=== PATIENT | male | born 1960 | race Asian ===

== ENCOUNTER 2025-07-17 12:10 | Emergency (ER) | payer OTHER, SELFPAY ==
[2025-07-17 12:34] VITALS: BP 138/95; PULSE 90; RESP 18; TEMP 36.4; O2SAT 97; BMI 29.2
--- NOTE | 2025-07-17 12:39 | XR_ITS ---
CLINICAL INDICATION: cough TECHNIQUE: XR chest 2V Exam date and time: 07/17/2025, 12:48 p.m. COMPARISON: None. FINDINGS: The cardiomediastinal silhouette is within normal limits. No airspace opacities suggestive of pneumonia. No mass detected. No pleural effusion or pneumothorax. Degenerative changes of the skeletal structures. No apparent acute osseous abnormality. Surgical clips in the upper abdomen are compatible with cholecystectomy. IMPRESSION: No radiographic evidence for acute cardiopulmonary abnormality. - This report was generated utilizing speech recognition software. -
[2025-07-17 13:11] LABS: Collection Type, Urine Clean Catch
[2025-07-17 13:13] LABS: Lactate (Lactic Acid) 2.0 mMol/L (0.4-2.0)
--- NOTE | 2025-07-17 13:14 | PC.NURSE ---
CALLED PT TO GIVE MED BUT NO ANSWER WHEN CALLED IN LOBBY AND OUTSIDE.
[2025-07-17 13:24] LABS: Amphetamine/Methamp Scrn,U Negative (Negative); Barbiturate Screen,Urine Negative (Negative); Benzodiazepines Screen,Urine Negative (Negative); Benzoylecgonine Screen, Ur Positive (Negative); Bilirubin,Urine Negative (Negative); Blood,Urine 2+ (Negative); Clarity,Urine Clear (Clear/Hazy); Color,Urine Yellow (Lt Yel-Yel); Fentanyl Screen,Urine Negative (Negative); Glucose, Urine 2+ (Negative); Ketones,Urine Trace (Negative); Leukocyte Esterase,Urine Negative (Negative); Nitrite,Urine Negative (Negative); Opiate Screen,Urine Negative (Negative); PH,Urine 6.0 (5.0-7.0); Protein,Urine 1+ (Neg - Trace); RBC,Urine 45 /hpf (0-3); Specific Gravity,Urine 1.026 (1.001-1.035); Squamous Epithelial Cell,Urine 1 /hpf (0-5); THC Screen,Urine Positive (Negative); Urobilinogen,Urine 2.0 mg/dL (0.0-1.0); WBC,Urine 2 /hpf (0-5)
[2025-07-17 13:26] LABS: Basophils # (Auto) 0.0 Thou/mm3 (0.0-0.2); Basophils % (Auto) 0 % (0-2.5); Eosinophils # (Auto) 0.0 Thou/mm3 (0.0-0.5); Eosinophils % (Auto) 0 % (0-10); Hematocrit 45.5 % (41.0-53.0); Hemoglobin 15.8 g/dL (13.5-16.0); Immature Granulocytes Auto 0.07 Thou/mm3 (0.00-0.00); Lymphocytes # (Auto) 0.7 Thou/mm3 (1.0-4.8); Lymphocytes % (Auto) 5 % (10-50); Mean Corpuscular HGB Conc 34.7 g/dl (31.0-37.0); Mean Corpuscular Hemoglobin 30.0 pg (25.0-35.0); Mean Corpuscular Volume 86 fL (80-100); Monocytes # (Auto) 0.7 Thou/mm3 (0.0-0.8); Monocytes % (Auto) 5 % (0-12); Neutrophils # (Auto) 12.9 Thou/mm3 (1.8-7.7); Neutrophils % (Auto) 90 % (37-80); Nucleated Red Blood Cell # 0.00 Thou/mm3 (0.00-0.00); Nucleated Red Blood Cell % 0 /100 WBC (0); Platelet Count 209 Thou/mm3 (140-440); RDW Standard Deviation 43.1 fL (35.1-43.9); Red Blood Count 5.27 Miln/mm3 (4.50-5.90); White Blood Count 14.3 Thou/mm3 (3.8-10.6)
[2025-07-17 13:41] LABS: Alanine Aminotransferase 24 U/L (10-49); Albumin, Serum 4.9 gm/dL (3.4-4.8); Albumin/Globulin Ratio 1.9 (1.2-2.2); Alkaline Phosphatase 107 U/L (46-116); Anion Gap 9 (7-16); Aspartate Amino Transferase 26 U/L (0-34); BUN/Creatinine Ratio 8 Ratio (12-20); Bilirubin,Total 0.6 mg/dL (0.3-1.2); Blood Urea Nitrogen 9 mg/dL (9-23); Calcium 10.2 mg/dL (8.3-10.6); Calcium (Corrected) 10.2 mg/dL (8.5-10.1); Carbon Dioxide 25.4 mMol/L (20.0-31.0); Chloride 103 mMol/L (98-107); Creatinine (Component) 1.1 mg/dL (0.6-1.3); Estimated Creatinine Clearance 63.1 mL/min (>60); Globulin 2.6 gm/dL (2.3-3.5); Glucose 136 mg/dL (74-106); Osmolality,Calculated 274 (275-295); Potassium 3.4 mMol/L (3.4-5.1); Sodium 137 mMol/L (136-145); Total Protein 7.5 gm/dL (5.7-8.2); eGFR > 60 See Note
[2025-07-17 13:43] LABS: Procalcitonin 0.21 ng/ml (0.0-0.49)
[2025-07-17] MEDS: IBUPROFEN TAB 400 MG TABLET 800 MG PO (13:52)
[2025-07-17 14:11] LABS: Glucose Estimated Average 126 mg/dL (80-131); Hemoglobin A1C 6.0 % Hgb (4.8-6.0)
--- NOTE | 2025-07-17 15:10 | XR_ITS ---
Examination: CT abdomen and pelvis without contrast. Coronal 3-D reconstructions. Sagittal 2-D reconstructions. Date and time of exam: 07/17/2025, 4:34 p.m. INDICATION: Lower abdominal pain with nausea COMPARISON: None CTDI: vol (mGy): 6.96 DLP: (mGycm): 422 Technique: Axial images of the abdomen have been obtained, 3 mm slice thickness Intravenous contrast material has not been administered. Low dose protocols were performed. One or more of the following dose reduction techniques were used; automated exposure control, adjustment of the mA and/or KV according to patient size, use of iterative reconstruction technique. Findings: Lack of intravenous contrast limits evaluation of solid organs, vasculature, and lymph nodes. Lower thorax: No pleural effusions. No airspace consolidation. Thin linear scarlike density is present in the left lower lobe. Heart size is within normal limits. Liver: No hepatomegaly. Subcentimeter hypodensity in the inferior portion of the right hepatic lobe is suboptimally assessed without IV contrast but probably represents a cyst. Biliary system: No calcified gallstones or findings concerning for acute cholecystitis or biliary ductal obstruction. Spleen: Within normal limits of size. No discrete mass. Pancreas: No contour deforming mass or overt main pancreatic duct dilatation. No evidence for acute inflammation. Adrenal glands: Very mild likely benign hyperplasia of the left adrenal gland. Otherwise, discrete nodule. No hemorrhage. Kidneys: There are multiple variably sized hypodensities of the bilateral renal parenchyma that are compatible with cysts. A few hyperdense foci suspected represent hemorrhagic/proteinaceous cysts are noted at the lower pole the right kidney but suboptimally characterized without contrast. There is a very mild degree of posterior cortical calcification of the left kidney. Several cysts contain posterior mural calcification and/apparently layering calcific material. Partially exophytic lobulated mild cystic structure noted at the superior pole the left kidney. Left-sided renal calculi are present, the dominant in the interpolar region, but there is no evidence for hydronephrosis on either side. No ureteral calculi are seen. Bladder: Very limited assessment due to under distention and lack of contrast but no calculus is seen. Pelvic organs: Mildly prominent prostate gland with dense calcifications noted. Scattered tunica albuginea calcifications also noted throughout the penis. Mild bilateral hydroceles noted. Bowel/Peritoneal cavity: Limited assessment without IV and oral contrast as well as segments of underdistention. However, there is inflammatory mural thickening of the ascending colon with adjacent pericolonic fat stranding, extending mildly to the proximal transverse colon, and also appearing to involve the terminal ileum. Mild scattered diverticula are seen but there is no evidence for acute diverticulitis. No evidence for acute appendicitis or bowel obstruction. No ascites or free air. Lymph nodes/retroperitoneum: No pathologically enlarged lymph nodes or other masses. No hematoma or other abnormal collections. Vessels: Aortobiiliac atherosclerotic calcifications without aneurysm. Abdominal/Pelvic wall: Small fat-containing right inguinal hernia. Musculoskeletal: Multifocal degenerative changes with otherwise no evidence for recent fracture or aggressive lesion. IMPRESSION: Acute right-sided colitis with suspected terminal ileitis. This may be infectious or inflammatory in etiology. No evidence for bowel perforation, appendicitis or bowel obstruction. Multiple variably sized bilateral renal cysts including probable complex cysts likely be reassessed not emergently with contrast-enhanced CT or MRI of the abdomen. Small bilateral hydroceles. Chronic ancillary findings as above.
[2025-07-17 16:15] LABS: Lipase 34 U/L (12-53); Troponin I 0.020 ng/mL (0.0-0.045)
--- NOTE | 2025-07-17 17:15 | PD.EDRME ---
Rapid Medical Screening Exam RME Arrival date/time: 07/17/25 12:10 64-year-old male presents to the emerged from today patient reports he is homeless sleeps in a tent patient reports generalized abdominal pain, headache, fatigue Chief Complaint: Fever Time Seen by Provider: 07/17/25 12:39 Vital signs: Vital Signs Temperature 97.6 F 07/17/25 12:34 Pulse Rate 90 07/17/25 12:34 Respiratory Rate 18 07/17/25 12:34 Blood Pressure 138/95 H 07/17/25 12:34 Pulse Oximetry (%) 97 07/17/25 12:34 Oxygen Delivery Method Room Air 07/17/25 12:34 Vital signs reviewed by provider: Yes Exam: On exam patient well-appearing patient not appear toxic distress Clinical Impression: Lab work and imaging obtained
[2025-07-17 17:52] VITALS: BP 151/91; PULSE 90; RESP 18; TEMP 36.6; O2SAT 96
--- NOTE | 2025-07-17 18:11 | PD.EDFEVER ---
ED Fever RME/HPI General Chief Complaint: Fever Stated Complaint: FEVER, BODY ACHES, ABD PAIN Time Seen by Provider: 07/17/25 12:39 Arrival date/time: 07/17/25 12:10 RME / HPI RME / HPI Narrative: 07/17/25 12:10 64-year-old male presents to the emerged from today patient reports he is homeless sleeps in a tent patient reports generalized abdominal pain, headache, fatigue Dr. Boles?s Main ED Evaluation: 64yo male presents to the ED for complaints of generalized abdominal pain, fever, and body aches x 4 days. Patient reports associated diarrhea and sweating. Patient denies any N/V or any other associated symptoms. NKA. Patient admits to using cocaine and marijuana. Related Data Previous Rx's ?Medication ?Instructions ?Recorded levofloxacin 500 mg tablet 500 mg PO QDAY #10 tabs 07/17/25 lisinopril 40 mg tablet 40 mg PO QDAY #30 tabs 07/17/25 metronidazole 500 mg tablet 500 mg PO Q8H #30 tabs 07/17/25 Allergies Allergy/AdvReac Type Severity Reaction Status Date / Time No Known Allergies Allergy Verified 07/17/25 12:14 Review of Systems Review of Systems Systems Reviewed: All systems reviewed, normal except as documented Past Medical History Past Medical History CARDIAC: Positive Hypertension; Negative Congestive Heart Failure RESPIRATORY: Positive Asthma; Negative Chronic Obstructive Pulmonary Disease (COPD) GENITOURINARY: Negative Renal Disease ENDOCRINE: Negative Diabetes Mellitus Type 1 or Diabetes Mellitus Type 2 Social History SMOKING STATUS: Current some day smoker Physical Exam Narrative Physical exam: Generally patient is alert somewhat anxious but no obvious distress, heart regular rate and rhythm, lungs clear to auscultation equal bilaterally, abdomen soft bowel sounds present nondistended mild right lateral abdominal tenderness without rebound. Neurologic exam showed Kirk Coma Scale 15 Course Course Course Narrative: CXR is ordered for determining the etiology of fever. Quality Measures none Orders Category Date Time Status Bedside COVID-19 Antigen Test NOW Care 07/17/25 12:39 Active Bedside Influenza A&B Antigen Test NOW Care 07/17/25 12:[address] abdomen pelvis wo con Stat Exams 07/17/25 15:10 Completed XR chest 2V Stat Exams 07/17/25 12:39 Completed A1C [Glycohemoglobin w (eAG)] Stat Lab 07/17/25 13:00 Completed Blood Culture (Lab) Stat Lab 07/17/25 13:04 Received CBC Stat Lab 07/17/25 13:00 Completed Comprehensive Metabolic Panel Stat Lab 07/17/25 13:00 Completed Drug Screen,Urine Stat Lab 07/17/25 13:00 Completed Lactate (Lactic Acid) Stat Lab 07/17/25 13:00 Completed Lipase Stat Lab 07/17/25 15:27 Completed Procalcitonin Stat Lab 07/17/25 13:00 Completed Troponin I Stat Lab 07/17/25 15:27 Completed Urinalysis Stat Lab 07/17/25 13:00 Completed Urine Culture Stat Lab 07/17/25 13:00 Received Ibuprofen Tab [Motrin Tab] Med 07/17/25 13:04 Discontinued 800 mg PO X1 ONE Levofloxacin [Levaquin] Med 07/17/25 18:31 Discontinued 500 mg PO X1 ONE Lisinopril [Prinivil] Med 07/17/25 19:11 Discontinued 40 mg PO X1 ONE metroNIDAZOLE [Flagyl] Med 07/17/25 18:31 Discontinued 500 mg PO X1 ONE Vital Signs Vital signs: Vital Signs Temperature 97.6 F 07/17/25 12:34 Pulse Rate 90 07/17/25 12:34 Respiratory Rate 18 07/17/25 12:34 Blood Pressure 138/95 H 07/17/25 12:34 Pulse Oximetry (%) 97 07/17/25 12:34 Oxygen Delivery Method Room Air 07/17/25 12:34 Fever MDM Narrative MDM Narrative:: Scribe Attestation: 07/17/25 Paulette Go am scribing for and in the presence of Dr. Boles. I interpreted all labs. There is a slight leukocytosis. Urinary tox screen is positive for cocaine and marijuana. CT scan done the abdomen and pelvis showed evidence for right-sided colitis and ileitis. Patient will be started on Levaquin and Flagyl to be taken as prescribed. Patient has a history of hypertension and was hypertensive here in the emergency room. He has not been taking his lisinopril. He normally takes 40 mg a day. Patient was given Levaquin 500 milligrams p.o., Flagyl 500 mg p.o. and lisinopril 40 mg p.o. here in the emergency room. He will be discharged on Levaquin Flagyl and lisinopril to be taken as prescribed. He does have [employer] insurance. He is to follow-up with [facility]. Return to ER as needed or if condition worsens. COVID and flu testing was negative. Patient data External records reviewed:: [facility] previous records (Per chart review, patient has no previous ED visits or admissions to this facility.) Clinical information provided by:: patient Social determinants that could affect healthcare access:: none Patient has the following chronic illnesses:: HTN, asthma How is presenting disease/condition affected by chronic disease/condition?: uneffected by Evaluation data The following diagnostics were reviewed and interpreted by me:: lab results, radiology exam(s) and EKG tracing(s) Lab and/or radiology exams considered but not ordered:: none Interpretation Summary: [facility] Report Signed Patient: BAMBI NETTLES [facility]. Record#: [id number] Birthdate: 1960 Age/Sex: 64 / M Location: [facility] Attending Dr: Ordering Physician: Yandel CHOE)Arturo NP Date of Service: 07/17/25 Procedure(s): XR chest 2V Accession Number(s): [id number] cc: Yandel CHOE),Arturo DAY; Juan Miguel Salazar DO~ CLINICAL INDICATION: cough TECHNIQUE: XR chest 2V Exam date and time: 07/17/2025, 12:48 p.m. COMPARISON: None. FINDINGS: The cardiomediastinal silhouette is within normal limits. No airspace opacities suggestive of pneumonia. No mass detected. No pleural effusion or pneumothorax. Degenerative changes of the skeletal structures. No apparent acute osseous abnormality. Surgical clips in the upper abdomen are compatible with cholecystectomy. IMPRESSION: No radiographic evidence for acute cardiopulmonary abnormality. - This report was generated utilizing speech recognition software. - Dictated By: Juan Miguel Salazar DO Signed By: <Electronically signed by Juan Miguel Salazar DO in OV> 07/17/25 1259 [facility] Report Signed Patient: BAMBI NETTLES [facility]. Record#: [id number] Birthdate: 1960 Age/Sex: 64 / M Location: [facility] Attending Dr: Ordering Physician: Yandel CHOE)Arturo NP Date of Service: 07/17/25 Procedure(s): CT abdomen pelvis wo con Accession Number(s): [id number] cc: Yandel (SHAY),Arturo DAY; NO PRIMARY/FAMILY,PHYSICIAN; Juan Miguel Salazar DO~ Examination: CT abdomen and pelvis without contrast. Coronal 3-D reconstructions. Sagittal 2-D reconstructions. Date and time of exam: 07/17/2025, 4:34 p.m. INDICATION: Lower abdominal pain with nausea COMPARISON: None CTDI: vol (mGy): 6.96 DLP: (mGycm): 422 Technique: Axial images of the abdomen have been obtained, 3 mm slice thickness Intravenous contrast material has not been administered. Low dose protocols were performed. One or more of the following dose reduction techniques were used; automated exposure control, adjustment of the mA and/or KV according to patient size, use of iterative reconstruction technique. Findings: Lack of intravenous contrast limits evaluation of solid organs, vasculature, and lymph nodes. Lower thorax: No pleural effusions. No airspace consolidation. Thin linear scarlike density is present in the left lower lobe. Heart size is within normal limits. Liver: No hepatomegaly. Subcentimeter hypodensity in the inferior portion of the right hepatic lobe is suboptimally assessed without IV contrast but probably represents a cyst. Biliary system: No calcified gallstones or findings concerning for acute cholecystitis or biliary ductal obstruction. Spleen: Within normal limits of size. No discrete mass. Pancreas: No contour deforming mass or overt main pancreatic duct dilatation. No evidence for acute inflammation. Adrenal glands: Very mild likely benign hyperplasia of the left adrenal gland. Otherwise, discrete nodule. No hemorrhage. Kidneys: There are multiple variably sized hypodensities of the bilateral renal parenchyma that are compatible with cysts. A few hyperdense foci suspected represent hemorrhagic/proteinaceous cysts are noted at the lower pole the right kidney but suboptimally characterized without contrast. There is a very mild degree of posterior cortical calcification of the left kidney. Several cysts contain posterior mural calcification and/apparently layering calcific material. Partially exophytic lobulated mild cystic structure noted at the superior pole the left kidney. Left-sided renal calculi are present, the dominant in the interpolar region, but there is no evidence for hydronephrosis on either side. No ureteral calculi are seen. Bladder: Very limited assessment due to under distention and lack of contrast but no calculus is seen. Pelvic organs: Mildly prominent prostate gland with dense calcifications noted. Scattered tunica albuginea calcifications also noted throughout the penis. Mild bilateral hydroceles noted. Bowel/Peritoneal cavity: Limited assessment without IV and oral contrast as well as segments of underdistention. However, there is inflammatory mural thickening of the ascending colon with adjacent pericolonic fat stranding, extending mildly to the proximal transverse colon, and also appearing to involve the terminal ileum. Mild scattered diverticula are seen but there is no evidence for acute diverticulitis. No evidence for acute appendicitis or bowel obstruction. No ascites or free air. Lymph nodes/retroperitoneum: No pathologically enlarged lymph nodes or other masses. No hematoma or other abnormal collections. Vessels: Aortobiiliac atherosclerotic calcifications without aneurysm. Abdominal/Pelvic wall: Small fat-containing right inguinal hernia. Musculoskeletal: Multifocal degenerative changes with otherwise no evidence for recent fracture or aggressive lesion. IMPRESSION: Acute right-sided colitis with suspected terminal ileitis. This may be infectious or inflammatory in etiology. No evidence for bowel perforation, appendicitis or bowel obstruction. Multiple variably sized bilateral renal cysts including probable complex cysts likely be reassessed not emergently with contrast-enhanced CT or MRI of the abdomen. Small bilateral hydroceles. Chronic ancillary findings as above. Dictated By: Juan Miguel Salazar DO Signed By: <Electronically signed by Juan Miguel Salazar DO in OV> 07/17/25 1713 Medications / Prescriptions Medications or Prescriptions considered but not ordered:: none Medication administrations:: Medication Administration History Discontinued Medications Ibuprofen (Ibuprofen Tab 400 Mg Tablet) 800 mg PO X1 ONE Stop: 07/17/25 13:05 Last Admin: 07/17/25 13:52 Dose: 800 mg Documented By: LP Levofloxacin (Levofloxacin 250 Mg Tablet) 500 mg PO X1 ONE Stop: 07/17/25 18:32 Last Admin: 07/17/25 18:43 Dose: 500 mg Documented By: EF Lisinopril (Lisinopril 20 Mg Tablet) 40 mg PO X1 ONE Stop: 07/17/25 19:12 Metronidazole (Metronidazole 250 Mg Tablet) 500 mg PO X1 ONE Stop: 07/17/25 18:32 Last Admin: 07/17/25 18:43 Dose: 500 mg Documented By: EF see above Consultations Consultation(s) initiated? (list below): No Diagnosis Fever Differential Diagnosis: other (See MDM) Most likely diagnosis given after review of the tests above:: see clinical impression below Admission Indicated Admission indicated?: not indicated Admission Request Was there a request for admission?: No Disposition Plan Disposition Plan: Discharge Discharge Attestation Discharge Attestation: The patient and all family members were given an opportunity to ask questions and understood the discharge instructions. Discharge instructions specifically effects, indications for sooner follow up or return to the emergency department, and the expected course of current diagnosis. Patient condition: Stable Discharge Plan Plan Patient Disposition: HOME (Self Care) Prescriptions/Referrals Prescriptions/Med Rec: New levofloxacin 500 mg tablet 500 mg PO QDAY Qty: 10 0RF metronidazole 500 mg tablet 500 mg PO Q8H Qty: 30 0RF lisinopril 40 mg tablet 40 mg PO QDAY Qty: 30 0RF Referrals: No Primary/Family,Physician [Primary Care Provider] - In 1 week Problem List Clinical Impression: Colitis, Poorly-controlled hypertension Patient/Caregiver Discharge Instructions Education Materials: Understanding Colitis, ED High Blood Pressure ... Additional Instructions: You must take the 2 antibiotics as prescribed. Stop cocaine. Take the lisinopril as prescribed. Print Language: Frisian Stand Alone Forms: Cristina Award Info., Patient Portal Info Letter
[2025-07-17 18:23] VITALS: BP 155/117; PULSE 99; RESP 20; TEMP 36.6; O2SAT 96
[2025-07-17] MEDS: LEVOFLOXACIN 250 MG TABLET 500 MG PO (18:43)
[2025-07-17 19:16] VITALS: BP 175/112; PULSE 105
[2025-07-17 19:51] VITALS: BP 171/92; PULSE 78; RESP 16; TEMP 36.6; O2SAT 99
== END 2025-07-17 19:37 | disposition home or self-care (01) ==
PROVIDERS: Nurse Practitioner Primary Care; Emergency Provider Emergency Medicine
DX: K52.9 Noninfective gastroenteritis and colitis, unspecified (principal); N43.3 Hydrocele, unspecified; N28.1 Cyst of kidney, acquired; D72.829 Elevated white blood cell count, unspecified; I10 Essential (primary) hypertension; F17.210 Nicotine dependence, cigarettes, uncomplicated
CPT/HCPCS: 36415; 71046; 74176; 80053; 80307; 81001; 83036; 83605; 83690; 84145; 84484; 85025; 87040; 87086; 87502; 87635; 99283; A9270